=== PATIENT | female | born 1970 | race American Indian/Alaskan Native ===

== ENCOUNTER 2019-02-18 23:30 | Emergency (ER) | payer OTHER ==
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
[2019-02-19 05:09] VITALS: BP 150/86
== END 2019-02-19 05:08 | disposition home or self-care (01) ==
LOC: ED 23:30
DX: M54.6 Pain in thoracic spine (principal); H93.13 Tinnitus, bilateral; V49.49XA Driver injured in collision with other motor vehicles in traffic accident, initial encounter; Y93.89 Activity, other specified; Y92.488 Other paved roadways as the place of occurrence of the external cause; Y99.8 Other external cause status
CPT/HCPCS: 70450; 72070